=== PATIENT | male | born 1995 ===

== ENCOUNTER 2020-12-18 16:44 | Emergency (ER) | payer BC ==
[2020-12-18] MEDS ORDERED: Acetaminophen 500 MG Tab PO ONE (16:53)
[2020-12-18] MEDS ORDERED: Bacitracin Oint 1 GM U/D Packet TOP ONE (16:53)
[2020-12-18] MEDS ORDERED: Lidocaine 1% 30 ML SDV INJECT ONE (16:53)
[2020-12-18] MEDS ORDERED: Diphtheria,Pertussis(Acell),Tetanus Vaccine 0.5 ML Syringe IM ONE (18:24)
--- NOTE | 2020-12-19 16:06 | EDM.PDOC ---
Scribed by Randa Henson 12/18/20 [id number] for Abbey Partida NP ED HPI GENERAL MEDICAL PROBLEM - General Chief Complaint: Upper Extremity Injury/Pain Stated Complaint: RIGHT RING FINGER CUT DEEP Time Seen by Provider: 12/18/20 16:53 Source of Information: Reports: Patient, RN, RN Notes Reviewed History Limitations: Reports: No Limitations - History of Present Illness INITIAL COMMENTS - FREE TEXT/NARRATIVE: Chintan is a 25 y/o male who presents to the ED via personal vehicle with complaints of laceration to left fifth digit. The patient reports he sustained the laceration about 15 minutes prior while attempting to remove the bottom of a door with a circular saw. The patient denies loss of motor function or sensation to the left fifth digit. The patient is unsure of his tetanus status and believes his last vaccination to be several years ago. - Related Data Allergies Allergy/AdvReac Type Severity Reaction Status Date / Time No Known Allergies Allergy Verified 12/18/20 17:25 Review of Systems - Review of Systems Review Of Systems: Comprehensive ROS is negative, except as noted in HPI. ED EXAM, GENERAL - Physical Exam Exam: See Below Exam Limited By: No Limitations General Appearance: Alert, Anxious, Mild Distress (Pain to left fifth digit) Eye Exam: Bilateral Eye: EOMI, Normal Inspection, PERRL (3mm) Ears: Normal External Exam, Hearing Grossly Normal Throat/Mouth: Normal Inspection, Normal Oropharynx, Normal Voice, No Airway Compromise Head: Atraumatic, Normocephalic Neck: Normal Inspection, Supple, Non-Tender, Full Range of Motion Respiratory/Chest: No Respiratory Distress, Lungs Clear, Normal Breath Sounds, No Accessory Muscle Use, Chest Non-Tender Cardiovascular: Normal Peripheral Pulses, Regular Rate, Rhythm, No Edema, No Gallop, No JVD, No Murmur, No Rub Peripheral Pulses: 2+: Radial (L), Radial (R) GI/Abdominal: Normal Bowel Sounds, Soft, Non-Tender, No Distention, No Abnormal Bruit, No Mass, Pelvis Stable Back Exam: Normal Inspection, Full Range of Motion Extremities: Normal Range of Motion, Normal Capillary Refill, Arm Pain (Laceration to left fifth digit). No: Joint Swelling, Increased Warmth, Mottled, Pallor, Redness Neurological: Alert, Oriented, CN II-XII Intact, Normal Cognition, Normal Gait, No Motor/Sensory Deficits Psychiatric: Normal Affect, Normal Mood Skin Exam: Warm, Dry, Intact, Normal Color, No Rash. No: Cyanosis, Erythema, Jaundice, Mottled, Pallor ED TRAUMA EXTREMITY PROCEDURES - Laceration/Wound Repair Left Distal Digit - 5th (Baby) Lac/Wound Length In cm: 4.5 Appearance: Subcutaneous, Clean Distal NVT: Neuro & Vascular Intact, No Tendon Injury Anesthetic Type: Local Local Anesthesia - Lidocaine (Xylocaine): 1% Plain Local Anesthetic Volume: 5cc Skin Prep: Chlorhexidine (Hibiciens), Providone-Iodine (Betadine), Saline, Sterile Drape Exploration/Debridement/Repair: Wound Explored, In a Bloodless Field, Explored to Base, Wound Margins Revised Closed With: Sutures Suture Size: 4-0 # of Sutures: 8 Drain Placement: No Sterile Dressing Applied: Nurse Tetanus Status Addressed: Yes Complications: No Course - Vital Signs Last Recorded V/S: Last Vital Signs Temp 96.6 F L 12/18/20 17:03 Pulse 75 12/18/20 17:03 Resp 16 12/18/20 17:03 BP 122/62 12/18/20 17:03 Pulse Ox 100 12/18/20 17:03 - Orders/Labs/Meds Meds: Medications Discontinued Medications Generic Name Dose Route Start Last Admin Trade Name Joe PRN Reason Stop Dose Admin Acetaminophen 1,000 mg 12/18/20 16:53 12/18/20 17:42 Acetaminophen 500 Mg Tab PO 12/18/20 16:54 1,000 mg ONETIME ONE Administration Bacitracin 1 dose 12/18/20 16:53 12/18/20 17:41 Bacitracin Oint 1 Gm U/D Packet TOP 12/18/20 16:54 1 dose ONETIME ONE Administration Diphtheria/Tetanus/Acell Pertussis 0.5 ml 12/18/20 18:24 12/18/20 18:31 Diphtheria,Pertussis(Acell),Tetanus Vaccine 0.5 Ml Syringe IM 12/18/20 18:25 0.5 ml .ONCE ONE Administration Lidocaine HCl 30 ml 12/18/20 16:53 12/18/20 17:42 Lidocaine 1% 30 Ml Sdv INJECT 12/18/20 16:54 10 ml ONETIME ONE Administration - Re-Assessments/Exams Free Text/Narrative Re-Assessment/Exam: 12/18/20 Left fifth digit sutured without complication. Boostrix administered. Discussed supportive cares for laceration care. Red flag signs and symptoms which would warrant reevaluation reviewed. Patient verbalized understanding and agreement with the plan of care. Departure - Departure Time of Disposition: 18:25 Disposition: Home, Self-Care 01 Condition: Fair Clinical Impression: Laceration of left little finger w/o foreign body w/o damage to nail Qualifiers: Encounter type: initial encounter Qualified Code(s): S61.217A - Laceration without foreign body of left little finger without damage to nail, initial encounter - Discharge Information *PRESCRIPTION DRUG MONITORING PROGRAM REVIEWED*: Not Applicable *COPY OF PRESCRIPTION DRUG MONITORING REPORT IN PATIENT [facility]: Not Applicable Instructions: Laceration Care, Adult Forms: ED Department Discharge Additional Instructions: 1.) Follow up with primary care for suture removal in seven days. 2.) Keep area clean and dry. 3.) Monitor for signs of wound infection, including redness, eli drainage, or increase in pain. I have read and agree with the documentation that has been completed regarding this visit. By signing this record, I attest that the documentation was completed in my physical presence and is an accurate record of the encounter.
== END 2020-12-18 18:33 | disposition home or self-care (01) ==
LOC: DL.ED 16:44
DX: S61.217A Laceration without foreign body of left little finger without damage to nail, initial encounter (principal); Z23 Encounter for immunization; W27.0XXA Contact with workbench tool, initial encounter
CPT/HCPCS: 12002; 90471; 90715; 99282-25; A9270-GY